=== PATIENT | female | born 1985 | race Caucasian/White ===

== ENCOUNTER 2022-09-23 05:43 | Emergency (ER) | payer MEDICAID, OTHER ==
[~2022-09-23 05:43] MED LIST: KEFLEX
== END 2022-09-23 06:03 | disposition left against medical advice (07) ==
LOC: ER 05:43
DX: H92.09 Otalgia, unspecified ear (principal); Z53.21 Procedure and treatment not carried out due to patient leaving prior to being seen by health care provider

== ENCOUNTER 2024-04-03 01:55 | Emergency (ER) | payer MEDICAID ==
[~2024-04-03] VITALS: Ht 165.1 cm; Wt 68.2 kg
[2024-04-03] MEDS ORDERED: BACDST PO (05:44)
[2024-04-03] MEDS ORDERED: ACET500T58 PO (05:44)
[2024-04-03] MEDS: TETANUS-DIPTH-ACEL PERTUSSIS 0.5ML SYR Tdap IM ONE (06:08)
[2024-04-03] MEDS: KETOROLAC TROMETH 60MG/2ML VIAL IM ONE (06:10)
[2024-04-03 06:17] VITALS: BP 122/76; PULSE 79; RESP 18; TEMP 98; O2SAT 99
== END 2024-04-03 06:29 | disposition home or self-care (01) ==
LOC: ER 01:55
DX: L03.116 Cellulitis of left lower limb (principal); F17.210 Nicotine dependence, cigarettes, uncomplicated; Z90.49 Acquired absence of other specified parts of digestive tract; Z98.51 Tubal ligation status; Z88.1 Allergy status to other antibiotic agents; Z88.0 Allergy status to penicillin
CPT/HCPCS: 90471; 90715; 96372; 99284; J1885

== ENCOUNTER 2025-05-30 22:27 | Emergency (ER) | payer MEDICAID ==
[~2025-05-30] VITALS: Ht 165.1 cm; Wt 73.1 kg
[~2025-05-30 22:27] MED LIST changes: +ACET500T58 PO; +BACDST PO
[2025-05-30 22:29] VITALS: BP 129/87; PULSE 99; RESP 16; TEMP 98.4; O2SAT 99
--- NOTE | 2025-05-30 23:59 | ED.PDOC ---
Musculoskeletal HPI Comments 32-year-old female with a history of Bartholin cysts, prior appendectomy, cholecystectomy, five C-sections and marijuana/tobacco abuse presents to the ED for the chief complaint erythema, swelling the right labia. Patient states that she noticed the redness and swelling approximately two days ago, an has since found no alleviating factors at this time. Patient states the current swelling and erythema is right next to where she had a previous Bartholin cyst. Patient denies any abdominal pain, dysuria, urinary symptoms, or any other associated symptoms, modifiers, factors at this time. Chief Complaint: Extremity Swelling Time Seen by MD: 23:55 Primary Care Provider: NONE Reviewed Notes: Nurses Notes, Medications, Allergies Allergies: Coded Allergies: Cephalexin (Verified Allergy, Unknown, 04/03/24) Clindamycin (Verified Allergy, Unknown, 04/03/24) Penicillins (Verified Allergy, Unknown, 04/03/24) Vancomycin (Verified Allergy, Unknown, 04/03/24) Home Meds Active Scripts Acetaminophen (Acetaminophen) 500 Mg Tab, 500 MG PO Q4HPRN, #30 TAB 0 Refills Prov:RAINE DE LEON 04/03/24 Sulfamethoxazole W/Trimethopri (Bactrim Ds Tablet) 1 Tab Tb, 1 TAB PO BID for 7 Days, #14 TAB 0 Refills Prov:RAINE DE LEON 04/03/24 Reported Medications [Keflex] No Conflict Check 10/10/10 Information Source: Patient Mode of Arrival: Ambulatory Location: Right Extremity Location: Groin Timing: Days Prehospital treatment: None Severity: Moderate Able to Move Extremity: Yes Bear Weight: Fully Pain: Moderate Hand Dominance: Right Mechanism: Spontaneous Circumstances: Unknown Onset of Symptoms: Spontaneous Symptoms: Swelling, Pain, Erythema DVT Risk Factors: NONE Last Tetanus: Unknown Associated signs and symptoms: None Past Medical History PAST MEDICAL HISTORY: Denies Surgical History: Appendectomy, Cholecystectomy, , 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 Moist mucous membranes.) Neck: Full Range of Motion, Normal Inspection Respiratory: Lungs Clear, No Accessory Muscle Use, No Respiratory Distress, Normal Breath Sounds Cardiovascular: No Edema, No JVD, Regular Rate/Rhythm Breast Exam: Deferred Gastrointestinal: Non Tender, Soft Genitalia: Other (Right labial erythema, induration, tenderness. No fluctuance or discharge.) Pelvic: Deferred Rectal: Deferred Extremities: Normal inspection, Normal range of motion, Non-tender, No pedal edema Neurologic: Alert (Oriented x4), Normal Affect, Normal Mood, Other (Ambulatory) Cerebellar Function: NOT DONE Reflexes: NOT DONE Skin: Dry, Normal Color, Warm Lymphatic: NOT DONE Was a procedure done? Was a procedure done?: No Differential Diagnosis EXT Differential Diagnosis: Cellulitis, Other (Abscess, Bartholin cyst, among others) X-Ray, Labs, Meds, VS Vital Signs Date Time Temp Pulse Resp B/P (MAP) Pulse Ox O2 Delivery O2 Flow Rate FiO2 05/30/25 22:29 98.4 99 16 129/87 99 98.4 Lab Test 05/31/25 00:26 Range/Units White Blood Count 15.5 H 4.4-10.8 10^3/uL Red Blood Count 4.52 4.0-5.20 10^6/uL Hemoglobin 9.5 L 12.2-16.2 g/dL Hematocrit 31.1 L 36.0-46.0 % Mean Corpuscular Volume 68.8 L 80.0-100.0 fL Mean Corpuscular Hemoglobin 21.1 L 28.0-32.0 pg Mean Corpuscular Hemoglobin Concent 30.7 L 32.0-36.0 g/dL Red Cell Distribution Width 17.2 H 11.8-14.3 % Platelet Count 323 140-450 10^3/uL Mean Platelet Volume 8.7 6.9-10.8 fL Neutrophils (%) (Auto) 85.6 H 37.0-80.0 % Lymphocytes (%) (Auto) 5.7 L 10.0-50.0 % Monocytes (%) (Auto) 7.8 0.0-12.0 % Eosinophils (%) (Auto) 0.5 0.0-7.0 % Basophils (%) (Auto) 0.4 0.0-2.0 % Neutrophils # (Auto) 13.2 H 1.6-8.6 10 ^3/uL Lymphocytes # (Auto) 0.9 0.4-5.4 10 ^3/uL Monocytes # (Auto) 1.2 0-1.3 10 ^3/uL Eosinophils # (Auto) 0.1 0-0.8 10 ^3/uL Basophils # (Auto) 0.1 0-0.2 10 ^3/uL Nucleated Red Blood Cells 0.0 % Sodium Level 137 136-145 mmol/L Potassium Level 3.2 L 3.5-5.1 mmol/L Chloride Level 103 98-107 mmol/L Carbon Dioxide Level 24 20-31 mmol/L Anion Gap 10 5-15 Blood Urea Nitrogen 7 L 9-23 mg/dL Creatinine 0.84 0.550-1.02 mg/dL Glomerular Filtration Rate Calc 91 >90 mL/min BUN/Creatinine Ratio 8.3 L 10.0-20.0 Serum Glucose 90 74-106 mg/dL Calcium Level 9.0 8.7-10.4 mg/dL X-Ray, Labs, Meds, VS Comment 40-year-old female with history of prior Bartholin cyst presenting with right labia majora pain, redness and swelling Vitals unremarkable Exam remarkable for right labial erythema, tenderness, induration Rhythm strip independently interpreted by me: Sinus rhythm, rate 99, no ectopy. CBC remarkable for WBC 15.5, basic metabolic panel remarkable for potassium 3.2, UA and urine pending Patient treated with the following in the ED: Bactrim 15 mL IV, [place] 5/325 mg 2 tabs p.o., Toradol 30 mg IV On re-evaluation, pain has partially improved. Vitals are stable. Patient has multiple antibiotic allergies, and I am concerned that Bactrim alone will not adequately treat the infection. Plan is to admit the patient for IV antibiotics, ID and tinter photograph evaluation. Time of 1ST Reevaluation: 00:25 Reevaluation 1ST: Unchanged Patient Education/Counseling: Diagnosis, Treatment, Need For Follow Up Family Education/Counseling: No Family Present Departure 1 Departure Time of Disposition: 02:00 Impression: Primary Impression: Cellulitis of labia majora Disposition: ADMITTED INPATIENT Admit to: Med Surg Condition: Fair Critical Care Note Critical Care Time?: No Stability Stability form required: No Heart Score Heart Score: Heart Score Response (Comments) Value History N/A 0 EKG N/A 0 Age N/A 0 Risk Factors N/A 0 Troponin N/A 0 Total 0 I personally scribed for RADHA SALAZAR MD ([email or web address]) on 05/30/25 at 23:59. Electronically submitted by Chase Soriano ([email or web address]). RADHA SALAZAR MD May 30, 2025 23:59
[2025-05-31] MEDS ORDERED: HYDROcodone-ACET 5/325MG TAB PO ONE (00:15)
[2025-05-31] MEDS ORDERED: SULFAMETH-TRIMETH 80/16MG-ML 15 ML in D5W 5% 500 ML IV ONE (00:15)
[2025-05-31] MEDS ORDERED: KETOROLAC TROMETH 30 MG/ML 1ML VIAL IV ONE (00:15)
[2025-05-31 00:56] LABS: Chloride 103 mmol/L (98-107); Sodium 137 mmol/L (136-145)
[2025-05-31 00:57] LABS: Anion Gap 10 (5-15); Calcium 9.0 mg/dL (8.7-10.4); Carbon Dioxide 24 mmol/L (20-31)
[2025-05-31 00:58] LABS: Potassium 3.2 mmol/L (3.5-5.1)
[2025-05-31 01:03] LABS: BUN/Creatinine Ratio 8.3 (10.0-20.0); Blood Urea Nitrogen 7 mg/dL (9-23); Glucose 90 mg/dL (74-106)
[2025-05-31 01:42] LABS: Mean Corpuscular Volume 68.8 fL (80.0-100.0); Nucleated Red Blood Cells % 0.0 %
[2025-05-31 01:43] LABS: Hematocrit 31.1 % (36.0-46.0); Hemoglobin 9.5 g/dL (12.2-16.2); Mean Corpuscular Hemoglobin 21.1 pg (28.0-32.0)
== END 2025-05-31 05:40 | disposition left against medical advice (07) ==
LOC: ER 22:27
DX: N76.2 Acute vulvitis (principal); F17.210 Nicotine dependence, cigarettes, uncomplicated; Z98.51 Tubal ligation status; Z90.49 Acquired absence of other specified parts of digestive tract; Z88.1 Allergy status to other antibiotic agents; Z88.0 Allergy status to penicillin; Z98.890 Other specified postprocedural states; Z79.899 Other long term (current) drug therapy
CPT/HCPCS: 36415; 80048; 85025; 87040; J3490

== ENCOUNTER 2025-10-02 05:26 | Emergency (ER) | payer MEDICAID ==
[~2025-10-02] VITALS: Ht 165.1 cm; Wt 73.6 kg
[2025-10-02 05:27] VITALS: BP 142/103; PULSE 80; RESP 18; TEMP 98.3; O2SAT 98
== END 2025-10-02 05:41 | disposition left against medical advice (07) ==
LOC: ER 05:26
DX: S09.92XA Unspecified injury of nose, initial encounter (principal); X58.XXXA Exposure to other specified factors, initial encounter; Y93.89 Activity, other specified; Y92.89 Other specified places as the place of occurrence of the external cause; Y99.8 Other external cause status